=== PATIENT | female | born 1985 | race African-American/Black ===

== ENCOUNTER 2020-08-31 10:54 | Emergency (ER) | payer MEDICAID, SELFPAY ==
[2020-08-31 10:59] VITALS: BP 122/83; PULSE 100; RESP 20; TEMP 36.6; O2SAT 100
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
== END 2020-08-31 11:55 | disposition home or self-care (01) ==
PROVIDERS: Emergency Provider Emergency Medicine
DX: S29.012A Strain of muscle and tendon of back wall of thorax, initial encounter (principal); V49.50XA Passenger injured in collision with unspecified motor vehicles in traffic accident, initial encounter
CPT/HCPCS: 99283